=== PATIENT | female | born 1995 | race African-American/Black ===

== ENCOUNTER 2016-11-15 15:24 | Emergency (ER) | payer OTHER ==
[~2016-11-15] VITALS: Ht 170.2 cm; Wt 68.7 kg
[~2016-11-15 15:24] MED LIST: AMOXMIS3 PO; MULT-513 PO; biotin PO
[2016-11-15 15:33] VITALS: TEMP 36.7; Ht 170.2 cm; Wt 68.7 kg
[2016-11-15] MEDS ORDERED: BIOT1CAP8 (16:36)
--- NOTE | 2016-11-15 16:59 | DIAGNOSTIC IMAGING REPORT ---
CHEST 2 VIEWS ROUTINE CLINICAL HISTORY: cough x 3 weeks dyspnea COMPARISON STUDY: 11/25/2013 FINDINGS: The bones soft tissues and hemidiaphragms are normal. The cardiomediastinal silhouette is normal. The lungs are clear. The pulmonary vasculature is normal. IMPRESSION: Negative chest. Electronically signed by: Max Rankin M.D. 11/15/2016 4:57 PM Dictated Date/Time: 11/15/2016 4:57 PM
[2016-11-15 17:11] VITALS: BP 96/60; PULSE 62; O2SAT 100
[2016-11-15] MEDS ORDERED: PRED20TA PO (17:18)
[2016-11-15] MEDS ORDERED: SULF800T23 PO (17:18)
[2016-11-15] MEDS ORDERED: HYDR5SYP11 PO (17:20)
--- NOTE | 2016-11-15 17:21 | EMERGENCY ROOM VISIT NOTE ---
ED Visit Note First contact with patient: 16:06 CHIEF COMPLAINT: Sinus congestion, ear pain and cough 3 weeks HPI: Patient is a 21-year-old female who presents emergency department for evaluation of upper respiratory symptoms. She states her symptoms started about 3 or 4 weeks ago and seemed more consistent with allergies. She states that she had a stuffy, runny nose and sinus pressure and congestion. She has had symptoms similar to this in the past, so she started using [id number] medications including Mucinex and Claritin, but her symptoms persisted, and has progressively worsened. She said she says about 5 days ago, her right ear became painful, blocked and the hearing was muffled. The congestion in her sinuses have gotten worse. She reports a deep, productive cough with thick sputum. She also notes feeling fatigued and anorexic. She denies any fever. She has also used NyQuil, Benadryl and a nasal decongestant spray without relief. She denies any generalized headache. No posterior neck pain or stiffness. She denies any chest pain and does not feel short of breath. She occasionally feels like she is wheezing. Denies any rash. REVIEW OF SYSTEMS: Review of systems as per HPI. All other systems reviewed were negative. 10 systems reviewed. PMH: Electronic medical records are reviewed and summarized as above/below. See Problem List. SOCIAL HISTORY: Patient lives at home. College student. Smokes marijuana occasionally. PHYSICAL EXAM: Vital Signs: Reviewed Nurse's notes. MENTAL STATUS: Patient is a well-appearing 21-year-old -[place] female who is awake and alert and in no acute distress. She is nontoxic in appearance. HEAD: Atraumatic, without temporal or scalp tenderness. EYES: PERRL, EOMI, no discharge or injection. EARS: Tympanic membranes intact, not inflamed, have normal contour. External canals clear. NOSE: Nares patent, turbinates edematous and boggy with thick rhinorrhea. MOUTH: Mucous membranes moist, no lesions, tongue and gums appear normal. THROAT: No pharyngeal injection, exudates, or tonsillar hypertrophy. Airway is patent. Postnasal drip noted. NECK: Supple, nontender, no lymphadenopathy. HEART: Regular rate and rhythm without murmurs, ectopy, gallops, or rubs. LUNGS: Clear to auscultation and breath sounds equal, no wheezes, rales, or rhonchi. SKIN: Normal. NEUROLOGICAL: Sensory and motor functions grossly intact. Normal gait. ED course: The patient was seen and evaluated as above. Old records were reviewed. Chest x-ray was obtained and was unremarkable. Her symptoms are consistent with sinusitis, possibly with an allergic rhinitis prodrome. Patient will be placed on a course of Bactrim. She was also given a course of prednisone, but can hold on this if she feels like she is improving on antibiotics. Continued supportive care was encouraged including Mucinex, albuterol, a nasal steroid spray and a nonsedating antihistamine. Differential diagnoses entertained includes sinusitis, bronchitis, otitis media , TM perforation, serous otitis, pneumonia, among others. CHEST 2 VIEWS ROUTINE CLINICAL HISTORY: cough x 3 weeks dyspnea COMPARISON STUDY: 11/25/2013 FINDINGS: The bones soft tissues and hemidiaphragms are normal. The cardiomediastinal silhouette is normal. The lungs are clear. The pulmonary vasculature is normal. IMPRESSION: Negative chest. Problem List Medical Problems: (1) Peptic ulcer due to Helicobacter pylori Status: Resolved Current/Historical Medications Scheduled Hydrocodone W/ Homatropine (Hycodan 5/1.5MG 5 Ml), 10 ML PO Q4H Multivitamins/Minerals (Mvi With Minerals), 1 TAB PO DAILY Prednisone (Prednisone), 0 PO DAILY Sulfa/Trimethoprim (Bactrim Ds 800MG/160MG), 1 TAB PO BID Miscellaneous Medications Biotin (Biotin), Unknown Dose Allergies Coded Allergies: No Known Allergies (Unverified , 11/15/16) Vital Signs Date Time Temp Pulse Resp B/P Pulse Ox O2 Delivery O2 Flow Rate FiO2 11/15/16 17:11 62 18 96/60 100 Room Air 11/15/16 15:35 99 Room Air 11/15/16 15:33 36.7 68 16 110/76 99 Room Air Medications Administered Medications (Trade) Dose Ordered Sig/Anais Route Start Time Stop Time Status Last Admin Dose Admin Albuterol (Ventolin Hfa Inhaler) 2 puffs NOW ONCE INH 11/15/16 17:30 11/15/16 17:31 DC 11/15/16 17:33 2 PUFFS Departure Information Impression Primary Impression: Acute sinusitis Prescriptions Hydrocodone W/ Homatropine (HYCODAN 5/1.5MG 5 ML) 1 Syp Syp 10 ML PO Q4H, #100 ML For Initial Treatment Prov: Tash Magana PA 11/15/16 Prednisone (Prednisone) 20 Mg Tab 0 PO DAILY, #18 TAB 3 DAILY FOR 3 DAYS, THEN 2 DAILY FOR 3 DAYS, THEN 1 DAILY FOR 3 DAYS. Prov: Tash Magana PA 11/15/16 Sulfa/Trimethoprim (Bactrim Ds 800MG/160MG) Tab 1 TAB PO BID, #20 TAB Prov: Tash Magana PA 11/15/16 Referrals No Doctor, Assigned (PCP) Patient Instructions [facility] Additional Instructions Trimethoprim-Sulfamethoxazole(Bactrim DS): Take one pill twice daily for 10 days for your sinus infection. All antibiotics can cause diarrhea. If this occurs and you feel worse or it does not resolve in 1-2 days follow up with your doctor or return to the Emergency Department as this could be signs of serious underlying problems. Any medication can cause an allergic reaction, stop the pills immediately and return to the ER for rash, hives, breathing difficulties, or swelling. Prednisone : Once daily as directed until the prescription is finished. It is best to take this earlier in the day as some patients note occasional difficulty falling asleep when taken in the late evening. Acetaminophen(Tylenol) may be used for fever or pain. Use 1000mg every six hours as needed. Avoid using more than 3000mg in a 24 hour period. (AND/OR) Ibuprofen(Motrin, Advil) may be used for fever or pain. Use 600mg every six hours as needed. Take with food. Avoid using more than 2400mg in a 24 hour period. Do not use 2400mg per day for more than three consecutive days without physician direction. Prolonged inappropriate use can lead to stomach upset or ulcers. OTC nasal steroid as directed (Nasacort, Flonase, Nasonex). Continue OTC antihistamine (Claritin, Shahrzad, Zyrtec). Pseudoephedrine(Sudaphed): 30-60mg every 6 hours as needed for nasal congestion. Do not take this with other stimulant products or supplements. Guaifenesin (Mucinex) : Take 1200 mg every 12 hours as needed for nasal/chest congestion, to help thin secretions. Albuterol Inhaler: Take 2 puffs four times daily for seven days, then as needed. Hycodan cough syrup: use 5-10mL every six hours only as needed for severe cough. It is best for use at night since it will cause sedation. This is a narcotic medication. Avoid alcohol, operating machinery or dangerous equipment , working on ladders or roofs, DRIVING, or situations where being under the influence may be dangerous. It is recommended to use an ldxo-ryo-[id number] stool softener such as Colace, 100mg twice daily while taking this medication to avoid constipation. Continue current medications. Return to the ER for severe headache, neck stiffness, chest pain, difficulty breathing, fevers, vomiting, worsening of your condition, or as needed. Follow up with your primary physician this week for a recheck of your current condition.
[2016-11-15] MEDS ORDERED: ALBUTEROL HFA 8 GM INHALER INH ONE (17:30)
== END 2016-11-15 18:15 | disposition home or self-care (01) ==
LOC: C.EDB 15:25 → C.EDA 18:15
DX: J01.90 Acute sinusitis, unspecified (principal); Z87.11 Personal history of peptic ulcer disease